=== PATIENT | female | born 1970 | race African-American/Black ===

== ENCOUNTER 2016-05-19 14:44 | Emergency (ER) | payer MEDICAID ==
[2016-05-19] MEDS ORDERED: HYDROmorphone 1 MG INJECTION IV ONE (14:55)
[2016-05-19] MEDS ORDERED: NS 1,000 ML IV ONE (14:56)
[2016-05-19] MEDS ORDERED: ONDANSETRON HCL 4 MG/2 ML VIAL IV ONE (14:56)
[2016-05-19] MEDS ORDERED: Pharmacy Review for Metformin - IV Contrast Given SCH (15:00)
--- NOTE | 2016-05-19 15:00 | EDPRACDOC ---
- General Information Chief Complaint: Abdominal Pain Stated Complaint: CHEST PAIN Time Seen by Provider: 05/19/16 14:54 Home Medications: Home Medications Fluoxetine [Prozac] 20 mg PO DAILY 03/01/15 Labetalol HCl [Trandate] 300 mg PO BID 09/10/15 Albuterol Sulfate [Proair Hfa] 2 puff INH Q4-6H PRN 10/08/15 Ipratropium/Albuterol Sulfate [Combivent Respimat Inhal [place]] 2 puff INH QID Hydrochlorothiazide 25 mg PO DAILY 03/16/16 Fluticasone Propionate [Flonase Nasal [place]] 2 spray SARTHAK DAILY 03/27/16 Hydroxyzine HCl 25 mg PO TID PRN 03/27/16 Lisinopril [Zestril] 40 mg PO DAILY 03/27/16 Quetiapine Fumarate Ext Rel [Seroquel Xr] 50 mg PO HS 03/27/16 CloNIDine (Antihypertensive) [Catapres] 0.1 mg PO BID #60 tab 05/19/16 Allergies/Adverse Reactions: Allergies Allergy/AdvReac Type Severity Reaction Status Date / Time Penicillins Allergy Intermediate Rash-Genera Verified 05/19/16 15:07 lized dicyclomine Allergy Rash-Genera Verified 05/19/16 15:07 lized ketorolac tromethamine Allergy Rash-Genera Verified 05/19/16 15:07 [From Toradol] lized lubiprostone [From Amitiza] Allergy Rash-Genera Verified 05/19/16 15:07 lized polyethylene glycol 3350 Allergy Rash-Genera Verified 05/19/16 15:07 [From Miralax] lized strawberry Allergy Fainting Verified 05/19/16 15:07 - History of Present Illness HPI: PATIENT PRESENTS C/O ABDOMINAL PAIN AND CHEST PAIN FOR 3-4 HOURS. PATIENT NOTES SHE HAS CHRONIC ABDOMINAL PAIN PRESENT FOR MONTHS DUE TO ADHESIONS AND POSSIBLE ENDOMETRIOSIS. NO FEVER. NO N/V. PATIENT STATES SHE DID NOT TAKE HER WATER PILL TODAY AND WENT TO [facility]. THERE SHE BEGAN HAVING CP AND NOTED INCREASED BLOOD PRESSURE Pain Location: Reports: Diffuse Pain Context: Reports: Spontaneous Pain Severity: Moderate Pain Quality: Reports: Aching Pain Radiation: Reports: No Radiation : No Adult Abdominal History: Reports: Bowel Obstruction Female Associated Signs & Symptoms: Denies: Nausea, Vomiting, Anorexia, Melena Oral Intake: Normal Urinary Output: Normal - Treatment Prior to ED Arrival Reported Medications/Treatment [facility] Treatment BLS IV No ED Past Medical History - History Reviewed Yes Nurses notes reviewed and agree except as marked Travel Outside of [place] in the Last 3 Months?: No - Patient Medical History Cardiac History: Reports: Hypertension, Heart Attack (states was told she had one in [place]), Valvular Heart Disease Respiratory History: Reports: Asthma Psychological History: Reports: Depression, Anxiety, Schizophrenia Systemic History: Reports: Anemia, Diabetes (borderline) Additional Past Medical History: OVARY CYST WITH SURGERY X 2 Surgical History: Reports: Hysterectomy, Other (BOWEL RESECTION, OOPHORECTOMY, knee surgery, multiple abdominal surgeries) - Family Medical History Reports: Hypertension (mother) - Social Medical History Smoking Status: Heavy tobacco smoker (5 or more cigarettes/day or daily pipe/ cigar) Social History: Reports: Marijuana Use ETOH: None Substance Abuse: None Lives With: Family Lives In: Home EDM Review of Systems - Review of Systems ROS Negative Except as Marked: Yes All systems reviewed and were negative except as marked Constitutional: No Symptoms Reported. negative: Fever, Chills, Weakness, Fatigue, Loss of Appetite Eyes: No Symptoms Reported. negative: Redness, Blurred Vision, Double Vision, Discharge, Pain, Light Sensitive, Photophobia Ears: No Symptoms Reported. negative: Pain, Hearing Loss, Drainage, Ear Pulling Throat: No Symptoms Reported. negative: Pain, Swelling Nose: No Symptoms Reported. negative: Congestion, Bleeding, Discharge, Injection, Swelling, Deformity, Ecchymosis, Tender, Abrasion, Laceration Mouth: No Symptoms Reported. negative: Pain, Drooling Respiratory: No Symptoms Reported. negative: Cough, Brassy Cough, Barky Cough, Shortness of Breath, Wheezing, Hemoptysis Cardiovascular: No Symptoms Reported. negative: Chest Pain, Palpitations, Syncope, Edema, Orthopnea, PND, Skin Mottling, Cyanosis Gastrointestinal: Pain. negative: Constipation, Diarrhea, Formula Intolerance, Melena, Nausea, Vomiting Genitourinary: No Symptoms Reported. negative: Dysuria, Hematuria, Frequency, Discharge, Bleeding, Testicular Pain, Neurological: No Symptoms Reported. negative: Headache, Dizziness, Seizure, Numbness, Weakness, Speech Difficulty, Gait Difficulty Musculoskeletal: No Symptoms Reported. negative: Neck, Chestwall, Ribs, Back, Shoulder, Arm, Elbow, Forearm, Wrist, Hand, Pelvis, Hip, Femur, Knee, Leg, Ankle , Foot Integumentary: No Symptoms Reported. negative: Itching, Rash, Bruising, Wound Allergic/Immunologic: No Symptoms Reported. negative: Hives, Itching Hematologic: No Symptoms Reported. negative: Lymphadenopathy, Easy Bruising, Easy Bleeding Endocrine: No Symptoms Reported. negative: Weight Gain, Weight Loss Psychiatric: No Symptoms Reported. negative: Anxiety, Depression, Hallucinations, Insomnia, Suicidal - Physical Exam Constitutional: Alert (Awake), Distress (MODERATE) Oriented to: Time, Person, Place Last recorded Vital Signs: Last Vital Signs Temp 98.0 F 05/19/16 15:00 Pulse 78 05/19/16 15:45 Resp 18 05/19/16 15:45 BP 197/117 H 05/19/16 15:45 Pulse Ox 94 05/19/16 15:45 Oxygen Pulse Oxygen Saturation 94 O2 Device Room Air Oxygen Flow Rate Fraction of Inspired Oxygen ( FIO2) - HEENT Head: Normal ( normocephalic) Eye Exam: Normal (PERRL, EOMI, Sclera white) Oropharynx: Normal (Pharynx:Moist without exudate,Gums-no swelling) Tympanic Membrane: Normal ENT EAC: Normal TMJ: Normal Nose: No Symptoms Reported (septum midline) Neck: Normal (FROM, trachea at midline) - Respiratory/Cardiovascular Respiratory: Normal - CTA (BBS clear to auscultation without adventitious sounds ) Cardiovascular: Normal (RRR without murmur, gallop or rub) - GI Auscultation: Normal (NABS) Palpation: Normal (Soft,No rebound or guarding, non distended) Tenderness: Diffuse, Mild Mckinney's Sign: Negative - Musculoskeletal Back: Normal (Non-Tender) Extremities: Normal (Normal tone, Pulses 2+ No cyanosis or edema, FROM) - Integumentary Skin: Normal, Warm, Dry Lymphatics: Normal (no adenopathy) - Neurologic Memory Impaired: Normal Motor Function: Normal (Normal tone, Pulses 2+ No cyanosis or edema, FROM) Cranial Nerve: Normal (CN II-X11 intact sensation, strength 5/5) Cerebellar: Normal Mood Description: Normal Perception: Normal - Results 05/19/16 14:55 05/19/16 14:55 WBC 8.6 xk/uL (3.8-10.8) 05/19/16 14:55 RBC 4.71 xM/uL (4.20-5.40) 05/19/16 14:55 Hgb 14.3 g/dL (12.0-16.0) 05/19/16 14:55 Hct 42.4 % (36-47) 05/19/16 14:55 MCV 90 fL (81-99) 05/19/16 14:55 MCH 30.3 pg (27-32) 05/19/16 14:55 MCHC 33.6 g/dl (33-36) 05/19/16 14:55 RDW 14.8 % (11.5-14.5) H 05/19/16 14:55 Plt Count 307 xk/uL (130-400) 05/19/16 14:55 MPV 8.5 fL (7.4-10.4) 05/19/16 14:55 Neut % (Auto) 67.1 % (45-76) 05/19/16 14:55 Lymph % (Auto) 23.5 % (17-44) 05/19/16 14:55 Dare % (Auto) 6.1 % (3-10) 05/19/16 14:55 Eos % (Auto) 2.1 % (0-5) 05/19/16 14:55 Baso % (Auto) 1.2 % (0-2) 05/19/16 14:55 Absolute Neuts (auto) 5.76 xk/uL (1.7-8.2) 05/19/16 14:55 Absolute Lymphs (auto) 1.98 xk/uL (0.65-4.75) 05/19/16 14:55 PT 10.0 SEC (9.2-11.2) 05/19/16 14:55 INR 1.0 05/19/16 14:55 APTT 25.6 SEC (22-35) 05/19/16 14:55 Sodium 143 mEq/L (137-146) 05/19/16 14:55 Potassium 3.8 mEq/L (3.5-5.1) 05/19/16 14:55 Chloride 108 mEq/L (98-107) H 05/19/16 14:55 Carbon Dioxide 23 mMOL/L (22-33) 05/19/16 14:55 Anion Gap 16 mEq/L (8-16) 05/19/16 14:55 BUN 21 MG/DL (7-17) H 05/19/16 14:55 Creatinine 0.90 MG/DL (0.52-1.04) 05/19/16 14:55 Estimated GFR (MDRD) > 60 mL/min (>=60) 05/19/16 14:55 Glucose 90 MG/DL (70-99) 05/19/16 14:55 Calculated Osmolality 278 MOs/Kg (270-290) 05/19/16 14:55 Calcium 9.9 MG/DL (8.4-10.2) 05/19/16 14:55 Total Bilirubin 0.6 MG/DL (0.2-1.3) 05/19/16 14:55 AST 24 IU/L (14-36) 05/19/16 14:55 ALT 37 IU/L (9-52) 05/19/16 14:55 Alkaline Phosphatase 111 IU/L (38-126) 05/19/16 14:55 Troponin I < 0.01 ng/mL (<.04) 05/19/16 14:55 Bae-F-Mbixdeyswlp Pept 176 pg/mL (0-450) 05/19/16 14:55 Total Protein 7.5 G/DL (6.3-8.2) 05/19/16 14:55 Albumin 4.6 G/DL (3.5-5.0) 05/19/16 14:55 Lipase 66 U/L (23-300) 05/19/16 14:55 Urine Color Pale yellow 05/19/16 14:45 Urine Clarity Sl cldy 05/19/16 14:45 Urine pH 6.0 (5.0-8.0) 05/19/16 14:45 Ur Specific [place] 1.015 (1.003-1.035) 05/19/16 14:45 Urine Protein Neg (NEG/TRACE) 05/19/16 14:45 Urine Glucose (UA) Neg (NEGATIVE) 05/19/16 14:45 Urine Ketones Neg (NEGATIVE) 05/19/16 14:45 Urine Occult Blood Neg (NEG/TRACE) 05/19/16 14:45 Urine Nitrite Neg (NEGATIVE) 05/19/16 14:45 Urine Bilirubin Neg (NEGATIVE) 05/19/16 14:45 Urine Urobilinogen <2.0 MG/DL (0-1) 05/19/16 14:45 Ur Leukocyte Esterase Neg (NEGATIVE) 05/19/16 14:45 Urine RBC 0-2 (0-5) 05/19/16 14:45 Urine WBC 0-2 (0-5) 05/19/16 14:45 Ur Epithelial Cells 2+ 05/19/16 14:45 Urine Bacteria Few (NEG/FEW) 05/19/16 14:45 Hyaline Casts 2-5 (0-2) H 05/19/16 14:45 Urine Mucus Occ (NEG/OCC) 05/19/16 14:45 Urine Test Neg (NEGATIVE) 05/19/16 14:45 Lab Results 05/19/16 05/19/16 05/19/16 14:55 14:55 14:55 WBC RBC Hgb Hct MCV MCH MCHC RDW Plt Count MPV Neut % (Auto) Lymph % (Auto) Dare % (Auto) Eos % (Auto) Baso % (Auto) Absolute Neuts (auto) Absolute Lymphs (auto) PT 10.0 INR 1.0 APTT 25.6 Sodium Potassium Chloride Carbon Dioxide Anion Gap BUN Creatinine Estimated GFR (MDRD) Glucose Calculated Osmolality Calcium Total Bilirubin AST ALT Alkaline Phosphatase Troponin I Zuv-M-Wskiimlilhc Pept 176 Total Protein Albumin Lipase 66 Urine Color Urine Clarity Urine pH Ur Specific [place] Urine Protein Urine Glucose (UA) Urine Ketones Urine Occult Blood Urine Nitrite Urine Bilirubin Urine Urobilinogen Ur Leukocyte Esterase Urine RBC Urine WBC Ur Epithelial Cells Urine Bacteria Hyaline Casts Urine Mucus Urine Test 05/19/16 05/19/16 05/19/16 14:55 14:55 14:45 WBC 8.6 RBC 4.71 Hgb 14.3 Hct 42.4 MCV 90 MCH 30.3 MCHC 33.6 RDW 14.8 H Plt Count 307 MPV 8.5 Neut % (Auto) 67.1 Lymph % (Auto) 23.5 Dare % (Auto) 6.1 Eos % (Auto) 2.1 Baso % (Auto) 1.2 Absolute Neuts (auto) 5.76 Absolute Lymphs (auto) 1.98 PT INR APTT Sodium 143 Potassium 3.8 Chloride 108 H Carbon Dioxide 23 Anion Gap 16 BUN 21 H Creatinine 0.90 Estimated GFR (MDRD) > 60 Glucose 90 Calculated Osmolality 278 Calcium 9.9 Total Bilirubin 0.6 AST 24 ALT 37 Alkaline Phosphatase 111 Troponin I < 0.01 Smp-Z-Sdcyqeaomta Pept Total Protein 7.5 Albumin 4.6 Lipase Urine Color Pale yellow Urine Clarity Sl cldy Urine pH 6.0 Ur Specific [place] 1.015 Urine Protein Neg Urine Glucose (UA) Neg Urine Ketones Neg Urine Occult Blood Neg Urine Nitrite Neg Urine Bilirubin Neg Urine Urobilinogen <2.0 Ur Leukocyte Esterase Neg Urine RBC 0-2 Urine WBC 0-2 Ur Epithelial Cells 2+ Urine Bacteria Few Hyaline Casts 2-5 H Urine Mucus Occ Urine Test 05/19/16 14:45 WBC RBC Hgb Hct MCV MCH MCHC RDW Plt Count MPV Neut % (Auto) Lymph % (Auto) Dare % (Auto) Eos % (Auto) Baso % (Auto) Absolute Neuts (auto) Absolute Lymphs (auto) PT INR APTT Sodium Potassium Chloride Carbon Dioxide Anion Gap BUN Creatinine Estimated GFR (MDRD) Glucose Calculated Osmolality Calcium Total Bilirubin AST ALT Alkaline Phosphatase Troponin I Ogu-S-Whcsreagdeq Pept Total Protein Albumin Lipase Urine Color Urine Clarity Urine pH Ur Specific [place] Urine Protein Urine Glucose (UA) Urine Ketones Urine Occult Blood Urine Nitrite Urine Bilirubin Urine Urobilinogen Ur Leukocyte Esterase Urine RBC Urine WBC Ur Epithelial Cells Urine Bacteria Hyaline Casts Urine Mucus Urine Test Neg - EKG EKG #1 EKG Time: 14:51 -: Yes EKG interpreted by me Rate: bpm: 74 Ennice: Normal Rhythm: NSR Block: 1, AVB Hypertrophy: None ST: Normal Decision Time to Discharge: 16:40 - Departure Yes I personally saw and evaluated the patient. Disposition: Home Condition: Good Final Diagnosis: Atypical chest pain Abdominal pain Qualifiers: Abdominal location: generalized Qualified Code(s): R10.84 - Generalized abdominal pain Hypertension Qualifiers: Hypertension type: unspecified secondary hypertension Qualified Code(s): I15.9 - Secondary hypertension, unspecified; I15 - Secondary hypertension Instructions: Acute Abdominal Pain (ED), Chest Pain (ED), Chest Wall Pain, Non- pharmacological Pain Management Therapies for Adults (GEN), Abdominal Pain (ED) , Chronic Hypertension (ED) Education/Counseling Given To: Patient Education/Counseling Given Regarding: Diagnosis, Treatment, Prognosis, Follow Up Referrals: Dejah Holder PA [Primary Care Provider] - One Week Prescriptions: New CloNIDine (Antihypertensive) [Catapres] 0.1 mg PO BID #60 tab No Action Fluoxetine [Prozac] 20 mg PO DAILY Labetalol HCl [Trandate] 300 mg PO BID Ipratropium/Albuterol Sulfate [Combivent Respimat Inhal [place]] 2 puff INH QID Albuterol Sulfate [Proair Hfa] 2 puff INH Q4-6H PRN PRN Reason: Shortness Of Breath Hydrochlorothiazide 25 mg PO DAILY Quetiapine Fumarate Ext Rel [Seroquel Xr] 50 mg PO HS Fluticasone Propionate [Flonase Nasal [place]] 2 spray SARTHAK DAILY Lisinopril [Zestril] 40 mg PO DAILY Hydroxyzine HCl 25 mg PO TID PRN PRN Reason: ANXIETY/ITCHING
[2016-05-19 15:07] VITALS: TEMP 98; BMI 36.2
[2016-05-19] MEDS ORDERED: FUROSEMIDE 40 MG/4 ML VIAL IV ONE (15:08)
[2016-05-19 15:14] LABS: AUTOMATED BASOPHIL 1.2 % (0-2); AUTOMATED EOSINOPHIL 2.1 % (0-5); AUTOMATED LYMPH 23.5 % (17-44); AUTOMATED MONOCYTE 6.1 % (3-10); AUTOMATED NEUTROPHIL 67.1 % (45-76); MPV 8.5 fL (7.4-10.4)
[2016-05-19 15:39] LABS: LEUKOCYTES/URINE NEG (NEGATIVE); NITRITE/URINE NEG (NEGATIVE); RBC/URINE 0-2 (0-5); URINE OCCULT BLOOD NEG (NEG/TRACE); WBC/URINE 0-2 (0-5)
[2016-05-19 15:42] LABS: BLOOD UREA NITROGEN 21 MG/DL (7-17); CALCIUM 9.9 MG/DL (8.4-10.2); CALCULATED OSMOLALITY 278 MOs/Kg (270-290); CHLORIDE 108 mEq/L (98-107); GLUCOSE 90 MG/DL (70-99); SODIUM LEVEL 143 mEq/L (137-146); TOTAL PROTEIN 7.5 G/DL (6.3-8.2)
--- NOTE | 2016-05-19 15:48 | DIRPT ---
CLINICAL DATA: Sharp left chest pain and pressure. Shortness of breath, nausea, headache. EXAM: PORTABLE CHEST 1 VIEW COMPARISON: 02/09/2016 FINDINGS: Heart and mediastinal contours are within normal limits. No focal opacities or effusions. No acute bony abnormality. IMPRESSION: No active disease. Electronically Signed By: Toy Cohen M.D. On: 05/19/2016 15:46
[2016-05-19 15:52] LABS: PARTIAL THROMB. TIME 25.6 SEC (22-35)
--- NOTE | 2016-05-19 16:23 | DIRPT ---
CLINICAL DATA: One month history of pelvic pain. EXAM: CT ABDOMEN AND PELVIS WITH CONTRAST TECHNIQUE: Multidetector CT imaging of the abdomen and pelvis was performed using the standard protocol following bolus administration of intravenous contrast. CONTRAST: 100 cc Isovue 370 COMPARISON: 04/14/2016 FINDINGS: Lower chest: The lung bases are clear of acute process. No pleural effusion or pulmonary lesions. The heart is normal in size. No pericardial effusion. The distal esophagus and aorta are unremarkable. Hepatobiliary: No focal hepatic lesions or intrahepatic biliary dilatation. The gallbladder is normal. No common bile duct dilatation. Pancreas: No mass, inflammation or ductal dilatation. Spleen: Normal size. No focal lesions. Adrenals/Urinary Tract: The adrenal glands and move kidneys are normal and stable. No renal, ureteral or bladder calculi or mass. Stomach/Bowel: The stomach, duodenum, small bowel and colon are grossly normal without oral contrast. Stable surgical changes involving the small bowel in the right upper quadrant. The terminal ileum is normal. The appendix is normal. Vascular/Lymphatic: No mesenteric or retroperitoneal mass or adenopathy. Small scattered lymph nodes are noted. The aorta and branch vessels are patent. Scattered atherosclerotic calcifications. Other: No pelvic mass or adenopathy. No free pelvic fluid collections. The uterus and ovaries are surgically absent. No inguinal mass or adenopathy. No abdominal wall hernia or subcutaneous lesions. Musculoskeletal: No significant bony findings. IMPRESSION: 1. No acute abdominal/pelvic findings, mass lesions or lymphadenopathy. 2. Stable surgical changes involving the small bowel in the right upper quadrant. 3. Scattered atherosclerotic calcifications involving the aorta but no aneurysm or dissection. Electronically Signed By: Manuelito Feliciano M.D. On: 05/19/2016 16:21
[2016-05-19 17:25] VITALS: BP 188/116; PULSE 87
== END 2016-05-19 17:20 | disposition home or self-care (01) ==
LOC: ED 14:44
DX: R07.89 Other chest pain (principal); R10.84 Generalized abdominal pain; I10 Essential (primary) hypertension; F17.200 Nicotine dependence, unspecified, uncomplicated; F12.10 Cannabis abuse, uncomplicated; Z79.899 Other long term (current) drug therapy
CPT/HCPCS: 36415; 71010; 74177; 80053; 81001; 81025; 83690; 83880; 84484; 85025; 85610; 85730; 93005; 96374; 96375; 99284; A9698; J1170; J1940; J2405; J3490

== ENCOUNTER 2016-05-28 10:24 | Emergency (ER) | payer MEDICAID ==
[2016-05-28 10:47] VITALS: BMI 35.1
[2016-05-28 10:48] VITALS: TEMP 98.6
[2016-05-28 11:23] LABS: LEUKOCYTES/URINE NEG (NEGATIVE); NITRITE/URINE NEG (NEGATIVE); RBC/URINE 0-2 (0-5); URINE OCCULT BLOOD NEG (NEG/TRACE); WBC/URINE 0-2 (0-5)
--- NOTE | 2016-05-28 12:11 | EDPRACDOC ---
- General Information Chief Complaint: Abdominal Pain Stated Complaint: PAIN, ABDOMINAL Time Seen by Provider: 05/28/16 12:07 Information Source: Patient Mode Of Arrival: Ambulance Home Medications: Home Medications Albuterol Sulfate [Proair Hfa] 2 puff INH Q4-6H PRN 10/08/15 Ipratropium/Albuterol Sulfate [Combivent Respimat Inhal [place]] 2 puff INH QID Fluticasone Propionate [Flonase Nasal [place]] 2 spray SARTHAK DAILY 03/27/16 Lisinopril [Zestril] 40 mg PO DAILY 03/27/16 Allergies/Adverse Reactions: Allergies Allergy/AdvReac Type Severity Reaction Status Date / Time Penicillins Allergy Intermediate Rash-Genera Verified 05/19/16 15:07 lized dicyclomine Allergy Rash-Genera Verified 05/19/16 15:07 lized ketorolac tromethamine Allergy Rash-Genera Verified 05/19/16 15:07 [From Toradol] lized lubiprostone [From Amitiza] Allergy Rash-Genera Verified 05/19/16 15:07 lized polyethylene glycol 3350 Allergy Rash-Genera Verified 05/19/16 15:07 [From Miralax] lized strawberry Allergy Fainting Verified 05/19/16 15:07 - History of Present Illness Onset: MARCH HPI: LOWER ABD PAIN SINCE MARCH, WORSE NOW. NAUSEA. NO FEVER, OR CHILLS. NO DIARRHEA. PAIN WORSE TODAY AT [facility]. PAIN 10/10, TO BACK .PT IS GOING TO HAVE EX LAP TO EVALUATE FOR SCAR TISSUE. SCHEDULED FOR STRESS TEST SOON. NEGATIVE CT 05/19 : No Adult Abdominal History: Reports: Bowel Obstruction - Treatment Prior to ED Arrival Reported Medications/Treatment [facility] Treatment BLS ED Past Medical History - History Reviewed Yes Nurses notes reviewed and agree except as marked - Patient Medical History Cardiac History: Reports: Hypertension, Heart Attack (states was told she had one in [place]), Valvular Heart Disease Respiratory History: Reports: Asthma Psychological History: Reports: Anxiety, Schizophrenia, Bipolar Disorder. Denies: Depression Systemic History: Reports: Anemia, Diabetes (borderline). Denies: Cancer Additional Past Medical History: OVARY CYST WITH SURGERY X 2 Surgical History: Reports: Hysterectomy, Other (BOWEL RESECTION, OOPHORECTOMY, knee surgery, multiple abdominal surgeries) - Family Medical History Reports: Hypertension (mother) - Social Medical History Smoking Status: Never smoker Social History: Reports: Marijuana Use EDM Review of Systems - Review of Systems ROS Negative Except as Marked: Yes All systems reviewed and were negative except as marked Constitutional: No Symptoms Reported Eyes: No Symptoms Reported Ears: No Symptoms Reported Respiratory: No Symptoms Reported Cardiovascular: No Symptoms Reported - Physical Exam Constitutional: Alert (Awake), Writhing Oriented to: Time, Person, Place Last recorded Vital Signs: Last Vital Signs Temp 98.6 F 05/28/16 10:47 Pulse 69 05/28/16 13:37 Resp 21 05/28/16 13:24 BP 208/113 H 05/28/16 13:37 Pulse Ox 99 05/28/16 13:37 Oxygen Pulse Oxygen Saturation 99 O2 Device Oxygen Flow Rate Fraction of Inspired Oxygen ( FIO2) - HEENT Head: Normal ( normocephalic) Eye Exam: Normal (PERRL, EOMI, Sclera white) Oropharynx: Normal (Pharynx:Moist without exudate,Gums-no swelling) Nose: No Symptoms Reported (septum midline) Neck: Normal (FROM, trachea at midline) - Respiratory/Cardiovascular Respiratory: Normal - CTA (BBS clear to auscultation without adventitious sounds ) Cardiovascular: Normal (RRR without murmur, gallop or rub) - GI Auscultation: Normal (NABS) Palpation: Normal (Soft,No rebound or guarding, non distended) Tenderness: Moderate (LOWER) - Musculoskeletal Back: Other (LEFT LOWER FLANK TTP.) Extremities: Normal (Normal tone, Pulses 2+ No cyanosis or edema, FROM) - Integumentary Skin: Normal, Warm, Dry Lymphatics: Normal (no adenopathy) - Neurologic Memory Impaired: Normal Motor Function: Normal (Normal tone, Pulses 2+ No cyanosis or edema, FROM) Cranial Nerve: Normal (CN II-X11 intact sensation, strength 5/5) Cerebellar: Normal Mood Description: Normal Perception: Normal - Results 05/28/16 12:50 05/28/16 13:32 WBC 6.7 xk/uL (3.8-10.8) 05/28/16 12:50 RBC 4.57 xM/uL (4.20-5.40) 05/28/16 12:50 Hgb 13.7 g/dL (12.0-16.0) 05/28/16 12:50 Hct 41.6 % (36-47) 05/28/16 12:50 MCV 91 fL (81-99) 05/28/16 12:50 MCH 30.0 pg (27-32) 05/28/16 12:50 MCHC 32.9 g/dl (33-36) L 05/28/16 12:50 RDW 15.4 % (11.5-14.5) H 05/28/16 12:50 Plt Count 284 xk/uL (130-400) 05/28/16 12:50 MPV 8.1 fL (7.4-10.4) 05/28/16 12:50 Neut % (Auto) 59.9 % (45-76) 05/28/16 12:50 Lymph % (Auto) 29.0 % (17-44) 05/28/16 12:50 [place] % (Auto) 6.6 % (3-10) 05/28/16 12:50 Eos % (Auto) 3.8 % (0-5) 05/28/16 12:50 Baso % (Auto) 0.7 % (0-2) 05/28/16 12:50 Absolute Neuts (auto) 3.95 xk/uL (1.7-8.2) 05/28/16 12:50 Absolute Lymphs (auto) 1.94 xk/uL (0.65-4.75) 05/28/16 12:50 Sodium 142 mEq/L (137-146) 05/28/16 13:32 Potassium 3.9 mEq/L (3.5-5.1) 05/28/16 13:32 Chloride 108 mEq/L (98-107) H 05/28/16 13:32 Carbon Dioxide 25 mMOL/L (22-33) 05/28/16 13:32 Anion Gap 13 mEq/L (8-16) 05/28/16 13:32 BUN 12 MG/DL (7-17) 05/28/16 13:32 Creatinine 0.70 MG/DL (0.52-1.04) 05/28/16 13:32 Estimated GFR (MDRD) > 60 mL/min (>=60) 05/28/16 13:32 Glucose 84 mg/dL (70-99) 05/28/16 13:32 Calculated Osmolality 272 MOs/Kg (270-290) 05/28/16 13:32 Calcium 9.4 MG/DL (8.4-10.2) 05/28/16 13:32 Corrected Calcium 9.5 MG/DL (8.4-10.2) 05/28/16 13:32 Total Bilirubin 0.3 MG/DL (0.2-1.3) 05/28/16 13:32 AST 21 IU/L (14-36) 05/28/16 13:32 ALT 27 IU/L (9-52) 05/28/16 13:32 Alkaline Phosphatase 102 IU/L (38-126) 05/28/16 13:32 Total Protein 6.6 G/DL (6.3-8.2) 05/28/16 13:32 Albumin 3.9 G/DL (3.5-5.0) 05/28/16 13:32 Urine Color Pale yellow 05/28/16 10:50 Urine Clarity Clear 05/28/16 10:50 Urine pH 6.0 (5.0-8.0) 05/28/16 10:50 Ur Specific [place] 1.005 (1.003-1.035) 05/28/16 10:50 Urine Protein Neg (NEG/TRACE) 05/28/16 10:50 Urine Glucose (UA) Neg (NEGATIVE) 05/28/16 10:50 Urine Ketones Neg (NEGATIVE) 05/28/16 10:50 Urine Occult Blood Neg (NEG/TRACE) 05/28/16 10:50 Urine Nitrite Neg (NEGATIVE) 05/28/16 10:50 Urine Bilirubin Neg (NEGATIVE) 05/28/16 10:50 Urine Urobilinogen <2.0 MG/DL (0-1) 05/28/16 10:50 Ur Leukocyte Esterase Neg (NEGATIVE) 05/28/16 10:50 Urine RBC 0-2 (0-5) 05/28/16 10:50 Urine WBC 0-2 (0-5) 05/28/16 10:50 Ur Epithelial Cells Occ 05/28/16 10:50 Urine Bacteria Few (NEG/FEW) 05/28/16 10:50 Lab Results 05/28/16 05/28/16 05/28/16 13:32 12:50 10:50 WBC 6.7 RBC 4.57 Hgb 13.7 Hct 41.6 MCV 91 MCH 30.0 MCHC 32.9 L RDW 15.4 H Plt Count 284 MPV 8.1 Neut % (Auto) 59.9 Lymph % (Auto) 29.0 [place] % (Auto) 6.6 Eos % (Auto) 3.8 Baso % (Auto) 0.7 Absolute Neuts (auto) 3.95 Absolute Lymphs (auto) 1.94 Sodium 142 Potassium 3.9 Chloride 108 H Carbon Dioxide 25 Anion Gap 13 BUN 12 Creatinine 0.70 Estimated GFR (MDRD) > 60 Glucose 84 Calculated Osmolality 272 Calcium 9.4 Corrected Calcium 9.5 Total Bilirubin 0.3 AST 21 ALT 27 Alkaline Phosphatase 102 Total Protein 6.6 Albumin 3.9 Urine Color Pale yellow Urine Clarity Clear Urine pH 6.0 Ur Specific [place] 1.005 Urine Protein Neg Urine Glucose (UA) Neg Urine Ketones Neg Urine Occult Blood Neg Urine Nitrite Neg Urine Bilirubin Neg Urine Urobilinogen <2.0 Ur Leukocyte Esterase Neg Urine RBC 0-2 Urine WBC 0-2 Ur Epithelial Cells Occ Urine Bacteria Few Decision Time to Discharge: 14:35 - Departure Yes I personally saw and evaluated the patient. Disposition: Home Condition: Stable Final Diagnosis: Abdominal pain Qualifiers: Abdominal location: lower abdomen, unspecified Qualified Code(s): R10.30 - Lower abdominal pain, unspecified Instructions: Acute Abdominal Pain (ED), Non-pharmacological Pain Management Therapies for Adults (GEN), Abdominal Pain (ED) Education/Counseling Given To: Patient Education/Counseling Given Regarding: Diagnosis Referrals: None,No Provider [Primary Care Provider] - One Week Prescriptions: No Action Ipratropium/Albuterol Sulfate [Combivent Respimat Inhal [place]] 2 puff INH QID Albuterol Sulfate [Proair Hfa] 2 puff INH Q4-6H PRN PRN Reason: Shortness Of Breath Fluticasone Propionate [Flonase Nasal [place]] 2 spray SARTHAK DAILY Lisinopril [Zestril] 40 mg PO DAILY
[2016-05-28] MEDS ORDERED: HYDROmorphone 1 MG INJECTION IV ONE ×2 (12:13→14:50)
[2016-05-28] MEDS ORDERED: ONDANSETRON HCL 4 MG/2 ML VIAL IV ONE ×2 (12:13→14:50)
[2016-05-28] MEDS ORDERED: Pharmacy Review for Metformin - IV Contrast Given SCH (13:00)
[2016-05-28 13:01] LABS: AUTOMATED BASOPHIL 0.7 % (0-2); AUTOMATED EOSINOPHIL 3.8 % (0-5); AUTOMATED MONOCYTE 6.6 % (3-10); AUTOMATED NEUTROPHIL 59.9 % (45-76); MPV 8.1 fL (7.4-10.4)
[2016-05-28 13:38] VITALS: BP 208/113; PULSE 69
[2016-05-28 14:10] LABS: BLOOD UREA NITROGEN 12 MG/DL (7-17); CALC CORRECTED 9.5 MG/DL (8.4-10.2); CALCIUM 9.4 MG/DL (8.4-10.2); CALCULATED OSMOLALITY 272 MOs/Kg (270-290); CHLORIDE 108 mEq/L (98-107); GLUCOSE 84 mg/dL (70-99); SODIUM LEVEL 142 mEq/L (137-146); TOTAL PROTEIN 6.6 G/DL (6.3-8.2)
== END 2016-05-28 15:05 | disposition home or self-care (01) ==
LOC: ED 10:24
DX: R10.30 Lower abdominal pain, unspecified (principal)
CPT/HCPCS: 36415; 80053; 81001; 85025; 96374; 96375; 96376; 99283; J1170; J2405